=== PATIENT | female | born 1940 | race Caucasian/White ===

== ENCOUNTER 2018-08-07 01:31 | Observation (INO) | payer OTHER ==
[2018-08-07 02:34] LABS: BASO % 1.2 % (0-2.0); EOS % 2.2 % (0-4.5); HEMATOCRIT 40.9 % (32.4-45.2); HEMOGLOBIN 13.9 GM/dL (10.7-15.3); LYMPH % 27.9 % (8-40); MCH 29.2 pg (25.7-33.7); MCHC 33.9 g/dl (32.0-36.0); MEAN CELL VOLUME 86.3 fl (80-96); MEAN PLT VOLUME 8.6 fl (7.5-11.1); MONO % 9.1 % (3.8-10.2); NEUT % 59.6 % (42.8-82.8); PLATELET COUNT 246 K/MM3 (134-434); RBC 4.75 M/mm3 (3.60-5.2); RDW 15.1 % (11.6-15.6); WHITE BLOOD COUNT 7.3 K/mm3 (4.0-10.0)
[2018-08-07 03:06] LABS: ALBUMIN 3.5 g/dl (3.4-5.0); ALK PHOS 71 U/L (45-117); ANION GAP 7 MMOL/L (8-16); BILIRUBIN,TOTAL 0.9 mg/dL (0.2-1); BLOOD UREA NITROGEN 17 mg/dL (7-18); CHLORIDE 102 mmol/L (98-107); CO2 26 mmol/L (21-32); POTASSIUM 4.4 mmol/L (3.5-5.1); SGOT/AST 26 U/L (15-37); SGPT/ALT 23 U/L (13-61); SODIUM 135 mmol/L (136-145); TOT PROT 7.6 g/dl (6.4-8.2)
[2018-08-07 03:13] LABS: GLUCOSE,RANDOM 314 mg/dL (74-106)
[2018-08-07] MEDS ORDERED: SODIUM CHLORIDE 0.9% 500 ML INFUS.BAG IV ONE (03:17)
[2018-08-07] MEDS ORDERED: LORazepam 2 MG/ML SDV VIAL ONE (03:43)
--- NOTE | 2018-08-07 04:59 | PDOC ---
Documentation entered by Mark Huffman SCRIBE, acting as scribe for Ericka Olson MD. Ericka Olson MD: This documentation has been prepared by the Nathanael palomares Nirvannie, SCRIBE, under my direction and personally reviewed by me in its entirety. I confirm that the documentation accurately reflects all work, treatment, procedures, and medical decision making performed by me. History of Present Illness - General Chief Complaint: Lightheaded Stated Complaint: DIZZINESS Time Seen by Provider: 08/07/18 01:54 History Source: Patient, Family Exam Limitations: No Limitations - History of Present Illness Initial Comments: 08/07/18 03:07 HPI: 78YOF with significant past medical history of DM (with neuropathy), HTN, and HLD presenting with 1 day of constant dizziness described as spinning sensation/ lightheadedness, with associated mild blurred vision worsening with ambulation and turning her head to the left side. As per patient, her symptoms onset once she woke up this morning prompting her to go to her PCP who prescribed her Meclizine. She notes taking one dose of Meclizine approximately 8 hours prior to her arrival at 5pm, without relief prompting her arrival. no falls or gait instability, she does admit to peripheral neuropathy and leg pains, causing her to have some walking issues. She denies any recent ear infection or nasal congestion or URI/respiratory sx. She denies any weakness or change in strength or sensation to the extremities/ face. Denies any changes in hearing or changes in speech. Denies fever, chills, chest pain, SOB, palpitation, weakness, N, V, D, abdominal pain, bladder and bowel problems, leg swelling, No sick contacts or travel. No new changes in medications. Allergies: None Past Medical History: DM (with neuropathy), HTN, and HLD Social history: Lives with family. No tobacco, ETOH or drug use. Family history: 2 sisters and 1 brother- secondary to CVA (youngest at age 61YO) Surgical history: Right sided lumpectomy. Meds: as documented in EMR - hctz, tradjenta, gabapentin, glimepride, meclizine. 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 HEENT: no headache. +dizziness. No congestion. +Mild blurred vision. No hearing disturbances. no double vision. CVS: no cp or syncope. Resp: no sob. No cough. Gastrointestinal: no abdominal pain, nausea or vomiting. Genitourinary: no urinary sx, hematuria. MUSCULOSKELETAL: No joint pain and swelling. No neck or back pain. SKIN: no redness or skin changes, no discharge, no rash. No wounds. Hematologic: no easy bruising/bleeding. NEUROLOGIC: No headache, LOC or altered mental status. No weakness, numbness or tingling. +dizziness. Psych: no anxiety or depression Allergic/Immunologic: no allergies All other systems reviewed and negative, or as documented in HPI. Physical exam: General: Well appearing, awake and alert, NAD. HEENT: NCAT, PERRL, EOMI, No nystagmus, clear conjunctiva, anicteric, moist mucus membranes, clear oropharynx, no oral lesions.. Neck: neck supple, FROM Resp: CTAB, normal and even respirations, no respiratory distress CVS: RRR, no murmurs, 2+ peripheral pulses throughout, no peripheral edema Abdomen: soft, NTND, no peritoneal signs. Back: nontender, normal inspection and ROM MSK: no edema, SOW x4, ROM intact. No clubbing or cyanosis. normal bulk and tone. Neuro: Alert, oriented to person time and place. No carotid bruit, CN II-XII grossly intact. Strength prox and distally 5/5 throughout. Sensation grossly intact to light touch. SOW x4. No cerebellar signs, no dysmetria, bilateral finger to nose and heel to duckworth equal and symmetric. Speech clear. +Unable to access gait secondary to dizziness. neg Romberg's sign Skin: warm and well perfused, cap refill <2 sec, normal color 08/07/18 03:08 08/07/18 03:13 Past History - Past Medical History Allergies/Adverse Reactions: Allergies Allergy/AdvReac Type Severity Reaction Status Date / Time No Known Allergies Allergy Verified 08/07/18 02:11 - Suicide/Smoking/Psychosocial Hx Smoking History: Never smoked Have you smoked in the past 12 months: No Information on smoking cessation initiated: No Hx Alcohol Use: No Drug/Substance Use Hx: No *Physical Exam - Vital Signs Last Vital Signs Temp Pulse Resp BP Pulse Ox 97.9 F 73 18 173/69 H 100 08/07/18 01:31 08/07/18 01:31 08/07/18 01:31 08/07/18 01:31 08/07/18 01:31 Heart Score/ECG Review #1 ECG reviewed & interpreted by me at: 02:15 General ECG Interpretation: Sinus Rhythm, Normal Rate, Normal Intervals Compared to previous ECG there are: Previous ECG unavail 08/07/18 03:02 EKG normal sinus rhythm at 75 bpm, no interval abnormalities, narrow QRS, ST and T wave segments and morphology normal. Nonspecific T wave abnormalities ED Treatment Course - LABORATORY CBC & Chemistry Diagram: 08/07/18 02:24 08/07/18 02:24 - ADDITIONAL ORDERS Additional order review: 08/07/18 02:24 RBC 4.75 MCV 86.3 MCHC 33.9 RDW 15.1 MPV 8.6 Neutrophils % 59.6 Lymphocytes % 27.9 Monocytes % 9.1 Eosinophils % 2.2 Basophils % 1.2 - RADIOLOGY Radiology Studies Ordered: Category Date Time Status HEAD CT WITHOUT CONTRAST [CT] Stat CT Scan 08/07/18 03:00 Ordered CHEST X-RAY PORTABLE* [RAD] Stat Radiology 08/07/18 03:01 Ordered Radiograph Interpretation: 08/07/18 05:11 EXAM: HEAD CT WITHOUT CONTRAST HISTORY: Rule out bleed COMPARISON: None. FINDINGS: The ventricular system is midline and nondilated. There is mild cortical atrophy and small vessel ischemic disease. There is no bleed, mass, extra-axial fluid collection or mass effect. No skull fracture or skull lesion is identified. The visualized paranasal sinuses and mastoid air cells are clear. IMPRESSION: No evidence of acute pathology Read by: Nick Rodriguez MD Medical Decision Making - Medical Decision Making 08/07/18 03:01 See HPI for details Vital signs reviewed, wnl. mildly hypertensive, but active vertigo/dizziness ddx central vs peripheral vertigo, CVA, aneurysm, dissection, carotid stenosis. BPPV, labrynthitis. Prior notes reviewed, including admissions, discharges and consultations. laboratory results and imaging reviewed, basic labs and lytes wnl, mild hyperglycemia noted,given fluids, recheck and downtrending. does not appear dka Cardiac panel_neg trop, reassuring, less likely cardiac EKG normal sinus rhythm at 75 bpm, no interval abnormalities, narrow QRS, ST and T wave segments and morphology normal. Nonspecific T wave abnormalities ED course - ativan for severe vertigo/active dizziness sx. meclizine unsuccessful earlier. - does have comorbidities and stroke risk factors, family members who have suffered CVA in 70s. - CT head small vessel disease, otherwise wnl. unremarkable imaging - repeat VS after therapy improved Admit for symptomatic vertigo, eval for stroke as central vertigo, MRI imaging to further delineate due to poor sensitivity of CT. Discussed results and management plan with pt and family member at bedside, agree with impression and plan admit to Dr Rowell 08/07/18 05:15 *DC/Admit/Observation/Transfer Diagnosis at time of Disposition: Vertigo - Discharge Dispostion Condition at time of disposition: Fair Decision to Admit order: Yes Decision to Admit order Date/Time: Decision to Admit Order Category Date Time Status Decision to Admit to Hospital Routine Admission 08/07/18 03:01 Ordered - Referrals - Patient Instructions - Post Discharge Activity
--- NOTE | 2018-08-07 05:27 | PN ---
Teaching Attending Note Name of Resident: Sergio Agudelo ATTENDING PHYSICIAN STATEMENT I saw and evaluated the patient. I reviewed the resident's note and discussed the case with the resident. I agree with the resident's findings and plan as documented. cc: vertigo SUBJECTIVE: She is a very pleasant 78 Y/O F W DM, HTN P/W vertigo for 8 hours prior to ED visit. She had been in her [facility] till the night prior to admission, she had recurrent episodes of vertigo when she moved her head to her left side, lasting for couple of seconds, denied any other neurological, cardiopulmonary complaints. had no fall and per her daughter she could walk with no fall to one side. No other ENT complaints either.Her symptoms where in the morning before she took her DM medication She was evalauted by her PMD in the morning and was RxED Mclizine , She came to the ED couple of hours after taking 1 dose of the medication, in the ED she was had BP IN 170S. was given ativan and at the time of my evaluation she has no more vertigo.Head CT negative for any acute bleeding , pending official read. OBJECTIVE: Last Vital Signs Temp Pulse Resp BP Pulse Ox 97.9 F 77 18 149/69 97 08/07/18 05:04 08/07/18 05:04 08/07/18 01:31 08/07/18 05:04 08/07/18 05:04 in no distress no nisttagmus and asymptomatic when moving her head. strengh 5/5 did not access her gait as she was S/P ativan and stuporous CVS:S1S2 ASSESSMENT AND PLAN: vertigo in a patient with cardiovascular equivalent diseases.most likely BPPV, less likely to be TIA as it was positional. will do further evalaution in the morning when she is more awake. likely to be DCed home no need for further imaging at this time. C/W home medication
--- NOTE | 2018-08-07 05:32 | HP ---
CHIEF COMPLAINT: vertigo PCP: Ana Paula Martins HISTORY OF PRESENT ILLNESS: Patient is a 78 y/o F w/ PMHx DM, HTN, HLD, breast Ca s/p lumpectomy p/w vertigo since awaking, c/o dizziness, lightheadedness, spinning sensation, head turning to left, blurry vision w/ ambulation. Saw PCP and had trial of meclizine w/o relief prompting ED visit. Denies n/v, ROS otherwise negative. In ED was hypertensive to 173/69 on presentation and in distress. Glucose 314, otherwise labs and EKG unremarkable. CT head negative. Received ativan and NS bolus in ED and symptoms resolved entirely, BP normalized, Pt became lethargic. At time of encounter Pt was sleepy but arousable, no remaining vertiginous complaints. ER course was notable for: (1) Labs, EKG, NCHCT unremarkable (2) Symptomatic resolution w/ Ativan (3) Recent Travel: PAST MEDICAL HISTORY: As per HPI PAST SURGICAL HISTORY: As per HPI Social History: Smoking: no Alcohol: no Drugs: no Family History: 3 siblings w/ premature 2/2 CVA Allergies No Known Allergies Allergy (Verified 08/07/18 02:11) HOME MEDICATIONS: Home Medications Medication Instructions Recorded Gabapentin 1 tab PO HS 08/07/18 Glimepiride 1 tab PO DAILY 08/07/18 Hydrochlorothiazide 1 tab PO DAILY 08/07/18 Linagliptin [Tradjenta] 1 tab PO DAILY 08/07/18 REVIEW OF SYSTEMS As per HPI PHYSICAL EXAMINATION Vital Signs - 24 hr 08/07/18 08/07/18 01:31 05:04 Temperature 97.9 F 97.9 F Pulse Rate 73 Pulse Rate [ 77 Right Radial] Respiratory 18 Rate Blood Pressure 173/69 H Blood Pressure 149/69 [Right Arm] O2 Sat by Pulse 100 97 Oximetry (%) GENERAL: Lethargic, oriented x 3 HEENT: NC/AT, PERRLA, EOMI, MMM, anicteric NECK: Normal range of motion, supple without lymphadenopathy, JVD, or masses. LUNGS: CTA b/l HEART: RRR no m/r/g ABDOMEN: +bs, soft, NT, ND EXTREMITIES: 2+ pulses, warm, well-perfused. No calf tenderness. No peripheral edema. 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 Good eye contact. Appropriate mood and affect. SKIN: Warm, dry, normal turgor, no rashes or lesions noted, normal capillary refill. Laboratory Results - last 24 hr 08/07/18 08/07/18 08/07/18 02:24 02:24 05:02 WBC 7.3 RBC 4.75 Hgb 13.9 Hct 40.9 MCV 86.3 MCH 29.2 MCHC 33.9 RDW 15.1 Plt Count 246 MPV 8.6 Absolute Neuts (auto) 4.3 Neutrophils % 59.6 Lymphocytes % 27.9 Monocytes % 9.1 Eosinophils % 2.2 Basophils % 1.2 Nucleated RBC % 0 Sodium 135 L Potassium 4.4 Chloride 102 Carbon Dioxide 26 Anion Gap 7 L BUN 17 Creatinine 1.0 Creat Clearance w eGFR 53.48 POC Glucometer 243 Random Glucose 314 H* Calcium 9.0 Total Bilirubin 0.9 AST 26 ALT 23 Alkaline Phosphatase 71 Troponin I < 0.02 Total Protein 7.6 Albumin 3.5 ASSESSMENT/PLAN: 78 y/o F w/ PMHx DM, HTN, HLD, breast Ca s/p lumpectomy p/w vertigo x 1 day #A: -likely BPPV -HCT negative -full resolution of symptoms w/ Ativan -poor glucose control -BP improved after symptomatic resolution #P: -may consider neurology consult and/or Brain MRI -BGM, SSI -restarted home HCTZ and gabapentin -diabetic diet -no further IVF -monitor BMP, Mg, Phos -obtain A1c -diabetic diet -mechanical DVT PPx -full code -observe on med/surg Visit type - Emergency Visit Emergency Visit: Yes ED Registration Date: 08/07/18 Care time: The patient presented to the Emergency Department on the above date and was hospitalized for further evaluation of their emergent condition. - New Patient This patient is new to me today: Yes Date on this admission: 08/07/18 - Critical Care Critical Care patient: No
[2018-08-07 07:22] LABS: BASO % 1.1 % (0-2.0); HEMATOCRIT 37.5 % (32.4-45.2); HEMOGLOBIN 12.6 GM/dL (10.7-15.3); LYMPH % 39.9 % (8-40); MCH 28.7 pg (25.7-33.7); MCHC 33.7 g/dl (32.0-36.0); MEAN CELL VOLUME 85.3 fl (80-96); MEAN PLT VOLUME 8.4 fl (7.5-11.1); MONO % 9.7 % (3.8-10.2); NEUT % 46.3 % (42.8-82.8); PLATELET COUNT 235 K/MM3 (134-434); RDW 15.1 % (11.6-15.6); WHITE BLOOD COUNT 5.9 K/mm3 (4.0-10.0)
[2018-08-07 07:48] LABS: ANION GAP 6 MMOL/L (8-16); BLOOD UREA NITROGEN 15 mg/dL (7-18); CALCIUM 8.7 mg/dL (8.5-10.1); CHLORIDE 106 mmol/L (98-107); CO2 26 mmol/L (21-32); CREATININE 0.8 mg/dL (0.55-1.3); GLUCOSE,RANDOM 221 mg/dL (74-106); MAGNESIUM 1.9 mg/dL (1.8-2.4); POTASSIUM 3.7 mmol/L (3.5-5.1); SODIUM 137 mmol/L (136-145)
[2018-08-07] MEDS: HYDROCHLOROTHIAZIDE 25 MG TABLET (FP) PO SCH (09:35)
[2018-08-07] MEDS: INSULIN SLIDING SCALE (NOVOLOG) 1 VIAL SQ SCH ×4 (09:35→21:57)
[2018-08-07] MEDS ORDERED: HYDROCHLOROTHIAZIDE 25 MG TABLET (FP) PO SCH (10:00)
[2018-08-07 10:24] VITALS: BMI 25.7
--- NOTE | 2018-08-07 12:26 | EKG ---
Test Reason : Blood Pressure : / mmHG Vent. Rate : 075 BPM Atrial Rate : 075 BPM P-R Int : 170 ms QRS Dur : 090 ms QT Int : 402 ms P-R-T Axes : 054 -28 021 degrees QTc Int : 448 ms NORMAL SINUS RHYTHM NONSPECIFIC ST ABNORMALITY ABNORMAL ECG WHEN COMPARED WITH ECG OF 06-DEC-2001 08:29, QT HAS LENGTHENED Confirmed by STEPHANIE MUNGUIA, FRANCES ([id number]) on 08/07/2018 12:25:53 PM Referred By: Alejandra LEYVA Confirmed By:FRANCES BROWN MD
[2018-08-07] MEDS ORDERED: MECLIZINE HCL 25 MG TABLET (FP) PO PRN (13:50)
--- NOTE | 2018-08-07 15:39 | PN ---
Physical Exam: SUBJECTIVE: Patient seen and examined at bedside this morning. Patient remains to be lethargic, with minimal response to questions. In the afternoon, patient reports dizziness and remains to be sleepy but arousable. OBJECTIVE: Vital Signs Temperature 98.3 F 08/07/18 14:22 Pulse Rate 83 08/07/18 14:22 Respiratory Rate 18 08/07/18 14:22 Blood Pressure 122/52 L 08/07/18 14:22 O2 Sat by Pulse Oximetry (%) 99 08/07/18 13:19 GENERAL: The patient is somnolent but arousable, and fully oriented, in no acute distress. HEAD: Normal with no signs of trauma. EYES: PERRLA, EOMI, sclera anicteric, conjunctiva clear. ENT: oropharynx clear without exudates, moist mucous membranes. NECK: Trachea midline, full range of motion, supple. LUNGS: Breath sounds equal, clear to auscultation bilaterally HEART: Regular rate and rhythm, S1, S2 without murmur, rub or gallop. ABDOMEN: Soft, nontender, nondistended, normoactive bowel sounds EXTREMITIES: 2+ pulses, warm, well-perfused, no edema. NEUROLOGICAL: Cranial nerves II through XII grossly intact. Normal speech, gait not observed. Motor strength 5/5, sensation intact. PSYCH: Normal mood, normal affect. SKIN: Warm, dry, normal turgor, no rashes or lesions noted Laboratory Results - last 24 hr 08/07/18 08/07/18 08/07/18 02:24 02:24 05:02 WBC 7.3 RBC 4.75 Hgb 13.9 Hct 40.9 MCV 86.3 MCH 29.2 MCHC 33.9 RDW 15.1 Plt Count 246 MPV 8.6 Absolute Neuts (auto) 4.3 Neutrophils % 59.6 Lymphocytes % 27.9 Monocytes % 9.1 Eosinophils % 2.2 Basophils % 1.2 Nucleated RBC % 0 Sodium 135 L Potassium 4.4 Chloride 102 Carbon Dioxide 26 Anion Gap 7 L BUN 17 Creatinine 1.0 Creat Clearance w eGFR 53.48 POC Glucometer 243 Random Glucose 314 H* Hemoglobin A1c % Calcium 9.0 Phosphorus Magnesium Total Bilirubin 0.9 AST 26 ALT 23 Alkaline Phosphatase 71 Troponin I < 0.02 Total Protein 7.6 Albumin 3.5 08/07/18 08/07/18 08/07/18 07:05 07:05 07:05 WBC 5.9 RBC 4.40 Hgb 12.6 Hct 37.5 MCV 85.3 MCH 28.7 MCHC 33.7 RDW 15.1 Plt Count 235 MPV 8.4 Absolute Neuts (auto) 2.7 Neutrophils % 46.3 D Lymphocytes % 39.9 D Monocytes % 9.7 Eosinophils % 3.0 Basophils % 1.1 Nucleated RBC % 0 Sodium 137 Potassium 3.7 Chloride 106 Carbon Dioxide 26 Anion Gap 6 L BUN 15 Creatinine 0.8 Creat Clearance w eGFR 69.19 POC Glucometer Random Glucose 221 H Hemoglobin A1c % 11.7 H Calcium 8.7 Phosphorus 3.0 Magnesium 1.9 Total Bilirubin AST ALT Alkaline Phosphatase Troponin I Total Protein Albumin 08/07/18 11:10 WBC RBC Hgb Hct MCV MCH MCHC RDW Plt Count MPV Absolute Neuts (auto) Neutrophils % Lymphocytes % Monocytes % Eosinophils % Basophils % Nucleated RBC % Sodium Potassium Chloride Carbon Dioxide Anion Gap BUN Creatinine Creat Clearance w eGFR POC Glucometer 309 Random Glucose Hemoglobin A1c % Calcium Phosphorus Magnesium Total Bilirubin AST ALT Alkaline Phosphatase Troponin I Total Protein Albumin Active Medications Generic Name Dose Route Start Last Admin Trade Name Freq PRN Reason Stop Dose Admin Enalapril Maleate 2.5 mg 08/07/18 14:00 Vasotec - PO DAILY AIRAM Gabapentin 300 mg 08/07/18 22:00 Neurontin - PO HS AIRAM Glimepiride 4 mg 08/08/18 07:00 Amaryl - PO AM AIRAM Hydrochlorothiazide 25 mg 08/07/18 10:00 08/07/18 09:35 Hctz - PO 25 mg DAILY [facility] Administration Insulin Aspart 1 vial 08/07/18 07:00 08/07/18 11:37 Novolog Vial Sliding Scale - SQ 8 units ACHS AIRAM Administration Protocol Meclizine HCl 25 mg 08/07/18 13:50 Antivert - PO DAILY PRN VERTIGO Multivitamins/Minerals 1 each 08/08/18 10:00 Theragran-M PO DAILY AIRAM Rosuvastatin Calcium 40 mg 08/07/18 22:00 Crestor - PO HS AIRAM Sitagliptin Phosphate 100 mg 08/08/18 07:00 Januvia - PO DAILY@0700 [facility] ASSESSMENT/PLAN: Patient is a 78 year old female with past medical history of DM, HTN, HLD, breast Ca s/p lumpectomy, presented with vertigo for 1 day. #Dizziness likely 2/2 BPPV -Head CT: no evidence of acute intracranial pathology -Continue Meclizine 25mg -patient continue to be somnolent (but improved), likely from the Ativan given -Will continue to monitor #DM -HbA1c 11.7 (previous HbA1c 14, patient known to be noncompliant as per PCP) -BGM ACHS -Will continue home meds Glimepiride 4mg and Sitagliptin 100mg #HTN -Continue home HCTZ 25mg, Enalapril 2.5mg #HLD -Continue Crestor 40mg PO HS #FEN -Not on any standing fluids -Electolytes wnl, routine bmp monitoring -Diabetic diet #Prophylaxis -SCDs -early ambulation #Disposition -full code -med surg -likely for discharge tomorrow Visit type - Emergency Visit Emergency Visit: Yes ED Registration Date: 08/07/18 Care time: The patient presented to the Emergency Department on the above date and was hospitalized for further evaluation of their emergent condition. - New Patient This patient is new to me today: Yes Date on this admission: 08/07/18 - Critical Care Critical Care patient: No
[2018-08-07] MEDS: ENALAPRIL MALEATE 2.5 MG TABLET (FP) PO SCH (15:50)
--- NOTE | 2018-08-07 19:07 | PN ---
Teaching Attending Note Name of Resident: Rito Ren ATTENDING PHYSICIAN STATEMENT I saw and evaluated the patient. I reviewed the resident's note and discussed the case with the resident. I agree with the resident's findings and plan as documented. SUBJECTIVE: seen and examined, feeling better, dizziness improved. no acute events overnight. OBJECTIVE: Vital Signs - 24 hr 08/07/18 08/07/18 08/07/18 01:31 05:04 09:19 Temperature 97.9 F 97.9 F 98.3 F Pulse Rate 73 Pulse Rate [ 77 Right Radial] Respiratory 18 Rate Blood Pressure 173/69 H Blood Pressure 149/69 [Right Arm] O2 Sat by Pulse 100 97 Oximetry (%) 08/07/18 08/07/18 08/07/18 10:20 10:30 13:19 Temperature 98.3 F Pulse Rate 72 Pulse Rate [ Right Radial] Respiratory 18 18 Rate Blood Pressure 147/74 Blood Pressure [Right Arm] O2 Sat by Pulse 99 99 Oximetry (%) 08/07/18 14:22 Temperature 98.3 F Pulse Rate 83 Pulse Rate [ Right Radial] Respiratory 18 Rate Blood Pressure 122/52 L Blood Pressure [Right Arm] O2 Sat by Pulse Oximetry (%) GENERAL: NAD, SITTING IN CHAIR BEDSIDE HEENT: NC/AT, PERRLA, EOMI, MMM NECK: SUPPLE CVS: S1, S2, RRR, NO M/R/G LUNGS: CTA BILATERALLY, NO W/R/R, UNLABORED ABDOMEN: SOFT, NT/ND, NABS EXTREMITIES: 2+ DPP, NO EDEMA NEUROLOGICAL: CN 2-12 GI, NO MOTOR DEFICITS, SENSATION INTACT, N CEREBELLAR DEFICITS, NO NYSTAGMUS Laboratory Results - last 24 hr 08/07/18 08/07/18 08/07/18 02:24 02:24 05:02 WBC 7.3 RBC 4.75 Hgb 13.9 Hct 40.9 MCV 86.3 MCH 29.2 MCHC 33.9 RDW 15.1 Plt Count 246 MPV 8.6 Absolute Neuts (auto) 4.3 Neutrophils % 59.6 Lymphocytes % 27.9 Monocytes % 9.1 Eosinophils % 2.2 Basophils % 1.2 Nucleated RBC % 0 Sodium 135 L Potassium 4.4 Chloride 102 Carbon Dioxide 26 Anion Gap 7 L BUN 17 Creatinine 1.0 Creat Clearance w eGFR 53.48 POC Glucometer 243 Random Glucose 314 H* Hemoglobin A1c % Calcium 9.0 Phosphorus Magnesium Total Bilirubin 0.9 AST 26 ALT 23 Alkaline Phosphatase 71 Troponin I < 0.02 Total Protein 7.6 Albumin 3.5 08/07/18 08/07/18 08/07/18 07:05 07:05 07:05 WBC 5.9 RBC 4.40 Hgb 12.6 Hct 37.5 MCV 85.3 MCH 28.7 MCHC 33.7 RDW 15.1 Plt Count 235 MPV 8.4 Absolute Neuts (auto) 2.7 Neutrophils % 46.3 D Lymphocytes % 39.9 D Monocytes % 9.7 Eosinophils % 3.0 Basophils % 1.1 Nucleated RBC % 0 Sodium 137 Potassium 3.7 Chloride 106 Carbon Dioxide 26 Anion Gap 6 L BUN 15 Creatinine 0.8 Creat Clearance w eGFR 69.19 POC Glucometer Random Glucose 221 H Hemoglobin A1c % 11.7 H Calcium 8.7 Phosphorus 3.0 Magnesium 1.9 Total Bilirubin AST ALT Alkaline Phosphatase Troponin I Total Protein Albumin 08/07/18 08/07/18 11:10 16:42 WBC RBC Hgb Hct MCV MCH MCHC RDW Plt Count MPV Absolute Neuts (auto) Neutrophils % Lymphocytes % Monocytes % Eosinophils % Basophils % Nucleated RBC % Sodium Potassium Chloride Carbon Dioxide Anion Gap BUN Creatinine Creat Clearance w eGFR POC Glucometer 309 327 Random Glucose Hemoglobin A1c % Calcium Phosphorus Magnesium Total Bilirubin AST ALT Alkaline Phosphatase Troponin I Total Protein Albumin Current Medications Generic Name Dose Route Start Last Admin Trade Name Freq PRN Reason Stop Dose Admin Enalapril Maleate 2.5 mg 08/07/18 14:00 08/07/18 15:50 Vasotec - PO 2.5 mg DAILY AIRAM Administration Gabapentin 300 mg 08/07/18 22:00 Neurontin - PO HS AIRAM Glimepiride 4 mg 08/08/18 07:00 Amaryl - PO AM AIRAM Hydrochlorothiazide 25 mg 08/07/18 10:00 08/07/18 09:35 Hctz - PO 25 mg DAILY AIRAM Administration Insulin Aspart 1 vial 08/07/18 07:00 08/07/18 16:43 Novolog Vial Sliding Scale - SQ 8 units ACHS AIRAM Administration Protocol Meclizine HCl 25 mg 08/07/18 13:50 08/07/18 15:50 Antivert - PO 25 mg DAILY PRN Administration VERTIGO Multivitamins/Minerals 1 each 08/08/18 10:00 Theragran-M PO DAILY AIRAM Rosuvastatin Calcium 40 mg 08/07/18 22:00 Crestor - PO HS AIRAM Sitagliptin Phosphate 100 mg 08/08/18 07:00 Januvia - PO DAILY@0700 [facility] REPORTS REVIEWED ASSESSMENT AND PLAN: 78 year old female with PMHx HTN, HLD, DM2, Breast CA s/p lumpectomy presents with vertigo 1) Vertigo likely peripheral in origin -positional in nature -c/w meclizine -today lethargic likely from benzo -dc in am if improved 2) DM2-uncontrolled, HbA1c 11.7 (previous HbA1c 14, patient known to be noncompliant as per PCP) -discussed case with PCP Dr. Hartmann, states her A1C was 14, was checked yesterday in the office, she is noncompliant with medications and diet -will not start insulin at this time, patient will need to followup closely outpatient -resume home meds -monitor BS and iss for coverage 3) HTN -Controlled on current regimen 4) HLD -statin
[2018-08-07] MEDS ORDERED: ROSUVASTATIN CA 20 MG TABLET (FP) PO SCH (22:00)
[2018-08-07] MEDS ORDERED: GABAPENTIN 300 MG CAPSULE (FP) PO SCH ×2 (22:00)
[2018-08-08] MEDS: INSULIN SLIDING SCALE (NOVOLOG) 1 VIAL SQ SCH ×2 (06:49→11:22)
[2018-08-08] MEDS ORDERED: sitaGLIPtin PHOSPHATE 100 MG TABLET (FP) PO SCH (07:00)
[2018-08-08] MEDS ORDERED: GLIMEPIRIDE 4 MG TABLET (FP) PO SCH (07:00)
[2018-08-08 08:11] LABS: ANION GAP 7 MMOL/L (8-16); BLOOD UREA NITROGEN 19 mg/dL (7-18); CALCIUM 9.4 mg/dL (8.5-10.1); CHLORIDE 107 mmol/L (98-107); CO2 26 mmol/L (21-32); CREATININE 0.8 mg/dL (0.55-1.3); GLUCOSE,RANDOM 202 mg/dL (74-106); PHOSPHOROUS 4.4 mg/dL (2.5-4.9); SODIUM 139 mmol/L (136-145)
[2018-08-08] MEDS ORDERED: PT OWN MED DRAWER 7, Y5N ONE (09:11)
[2018-08-08] MEDS: ENALAPRIL MALEATE 2.5 MG TABLET (FP) PO SCH (09:28)
[2018-08-08] MEDS: HYDROCHLOROTHIAZIDE 25 MG TABLET (FP) PO SCH (09:28)
[2018-08-08] MEDS ORDERED: LINAGLIPTIN PO SCH (10:00)
[2018-08-08] MEDS ORDERED: MULTIVITAMINS THER W-MINERALS COMBO TABLET (FP) PO SCH (10:00)
--- NOTE | 2018-08-08 11:15 | DS ---
Physical Exam: SUBJECTIVE: Patient seen and examined at bedside this morning. No acute events overnight. Patient is more awake and alert today. She has no complaints. Denies fever, chills,headache, dizziness,chest pain, SOB, abdominal pain, diarrhea, urinary symptoms. OBJECTIVE: Vital Signs Temperature 98.4 F 08/08/18 10:00 Pulse Rate 70 08/08/18 10:00 Respiratory Rate 18 08/08/18 10:00 Blood Pressure 107/55 L 08/08/18 10:00 O2 Sat by Pulse Oximetry (%) 100 08/08/18 05:00 PHYSICAL EXAM GENERAL: The patient is somnolent but arousable, and fully oriented, in no acute distress. HEAD: Normal with no signs of trauma. EYES: PERRLA, EOMI, sclera anicteric, conjunctiva clear. ENT: oropharynx clear without exudates, moist mucous membranes. NECK: Trachea midline, full range of motion, supple. LUNGS: Breath sounds equal, clear to auscultation bilaterally HEART: Regular rate and rhythm, S1, S2 without murmur, rub or gallop. ABDOMEN: Soft, nontender, nondistended, normoactive bowel sounds EXTREMITIES: 2+ pulses, warm, well-perfused, no edema. NEUROLOGICAL: Cranial nerves II through XII grossly intact. Normal speech, normal gait. Motor strength 5/5, sensation intact. PSYCH: Normal mood, normal affect. SKIN: Warm, dry, normal turgor, no rashes or lesions noted LABS Laboratory Results - last 24 hr 08/07/18 08/07/18 08/08/18 16:42 21:56 06:30 Sodium 139 Potassium 4.0 Chloride 107 Carbon Dioxide 26 Anion Gap 7 L BUN 19 H Creatinine 0.8 Creat Clearance w eGFR 69.19 POC Glucometer 327 336 Random Glucose 202 H Calcium 9.4 Phosphorus 4.4 Magnesium 2.0 08/08/18 06:47 Sodium Potassium Chloride Carbon Dioxide Anion Gap BUN Creatinine Creat Clearance w eGFR POC Glucometer 189 Random Glucose Calcium Phosphorus Magnesium HOSPITAL COURSE: Date of Admission:08/07/18 Date of Discharge: 08/08/18 Patient is a 78 year old female with past medical history of DM, HTN, HLD, breast Ca s/p lumpectomy, presented with vertigo for [address] was done which revealed no evidence of acute intracranial pathology. Patient was given Meclizine which improved her dizziness. Patient was also noted to have HbA1c of 11.7. As per PCP, last A1c was 14. Patient was advised to take her medications regularly and to follow-up with her PCP. Minutes to complete discharge: 36 Discharge Summary Reason For Visit: VERTIGO Current Active Problems Vertigo (Acute) Diabetes mellitus (Chronic) Hypertension (Chronic) Condition: Improved - Instructions Diet, Activity, Other Instructions: Your visit You were admitted to the hospital because you were feeling dizzy and lightheaded. You were given IV fluids and medication for vertigo which improved your symptoms. You were also noted to have elevated blood pressure and blood sugar when you came in. It is important that you follow up with your primary doctor to discuss further management of your high blood pressure and diabetes. Care Eat a low fat and low carbohydrate diet and drink plenty of water. Exercise regularly. Take your blood sugar level daily before dinner time, keep a record of it, and bring this blood sugary diary to your primary doctor. Medications Continue your home medications. Follow-up Please follow up with your primary care physician (Dr Martins) within 1 week. Additional info Call 911 or go to the ED if with any worsening fever, chills, headache, dizziness, chest pain, shortness of breath, belly pain, bloody stools or any new concerns noted. Referrals: Ana Paula Martins MD [Nurse Practitioner] - Disposition: HOME - Home Medications Comprehensive Discharge Medication List: Ambulatory Orders Enalapril Maleate 2.5 mg PO DAILY 08/07/18 Gabapentin 1 tab PO HS 08/07/18 Glimepiride 1 tab PO DAILY 08/07/18 Hydrochlorothiazide 1 tab PO DAILY 08/07/18 Linagliptin [Tradjenta] 1 tab PO DAILY 08/07/18 Meclizine HCl 25 mg PO DAILY PRN 08/07/18 Multivit-Min/Iron Fum/Folic AC [Xnnny-Mumlyiu-Ckdmqavb Tablet] 1 cap PO DAILY Omeprazole 20 mg PO DAILY 08/07/18 Rosuvastatin Calcium [Crestor] 40 mg PO DAILY 08/07/18 This patient is new to me today: No Emergency Visit: Yes ED Registration Date: 08/07/18 Care time: The patient presented to the Emergency Department on the above date and was hospitalized for further evaluation of their emergent condition. Critical Care patient: No - Discharge Referral Referred to [facility] Med P.C.: No
--- NOTE | 2018-08-08 11:59 | PN ---
Teaching Attending Note Name of Resident: Kat Rahman ATTENDING PHYSICIAN STATEMENT I saw and evaluated the patient. I reviewed the resident's note and discussed the case with the resident. I agree with the resident's findings and plan as documented. SUBJECTIVE: Patient has no complaints. OBJECTIVE: Vital Signs Period Temp Pulse Resp BP Sys/Aparicio Pulse Ox Last 24 Hr 97.9 F-98.6 F 54-88 18-20 105-146/52-74 99-100 HEART: S1S2, RRR LUNGS: Clear ABDOMEN: Soft, non-tender, non-distended, normal BS EXTREMITIES: No edema NEUROLOGICAL: Non-focal, normal gait Laboratory Results - last 24 hr 08/07/18 08/07/18 08/08/18 16:42 21:56 06:30 Sodium 139 Potassium 4.0 Chloride 107 Carbon Dioxide 26 Anion Gap 7 L BUN 19 H Creatinine 0.8 Creat Clearance w eGFR 69.19 POC Glucometer 327 336 Random Glucose 202 H Calcium 9.4 Phosphorus 4.4 Magnesium 2.0 08/08/18 08/08/18 06:47 11:18 Sodium Potassium Chloride Carbon Dioxide Anion Gap BUN Creatinine Creat Clearance w eGFR POC Glucometer 189 382 Random Glucose Calcium Phosphorus Magnesium Current Medications Generic Name Dose Route Start Last Admin Trade Name Freq PRN Reason Stop Dose Admin Enalapril Maleate 2.5 mg 08/07/18 14:00 08/08/18 09:28 Vasotec - PO 2.5 mg DAILY AIRAM Administration Gabapentin 300 mg 08/07/18 22:00 08/07/18 21:57 Neurontin - PO 300 mg HS AIRAM Administration Glimepiride 4 mg 08/08/18 07:00 08/08/18 06:49 Amaryl - PO 4 mg AM AIRAM Administration Hydrochlorothiazide 25 mg 08/07/18 10:00 08/08/18 09:28 Hctz - PO 25 mg DAILY AIRAM Administration Insulin Aspart 1 vial 08/07/18 07:00 08/08/18 11:22 Novolog Vial Sliding Scale - SQ 10 units ACHS AIRAM Administration Protocol Meclizine HCl 25 mg 08/07/18 13:50 08/07/18 15:50 Antivert - PO 25 mg DAILY PRN Administration VERTIGO Multivitamins/Minerals 1 each 08/08/18 10:00 08/08/18 09:28 Theragran-M PO 1 each DAILY AIRAM Administration Rosuvastatin Calcium 40 mg 08/07/18 22:00 08/07/18 21:57 Crestor - PO 40 mg HS AIRAM Administration Sitagliptin Phosphate 100 mg 08/08/18 07:00 08/08/18 06:49 Januvia - PO 100 mg DAILY@0700 AIRAM Administration ASSESSMENT AND PLAN: This is a 78 year old woman with a history of HTN, hyperlipidemia, type 2 DM, breast cancer who presented to the ED with dizziness. 1. Dizziness likely secondary to benign positional vertigo - Continue meclizine as needed 2. HTN - Continue Vasotec, HCTZ 3. Type 2 DM, uncontrolled, with peripheral neuropathy - HbA1c 11.7 - Patient has been non-compliant with treatment - Continue Januvia, Amaryl, Novolog sliding scale, Neurontin 4. Hyperlipidemia - Continue Crestor 5. Breast cancer, history of lumpectomy 6. Disposition - Ok for discharge home today
[2018-08-08 13:41] VITALS: BP 108/45; PULSE 77; TEMP 98.2
== END 2018-08-08 14:33 | disposition home or self-care (01) ==
LOC: JER 01:31 → JERBED 03:01 → J7W 07:29
PROVIDERS: ADMIT Internal Medicine; ATTEND Internal Medicine
PROC: 3E0337Z Introduction of Electrolytic and Water Balance Substance into Peripheral Vein, Percutaneous Approach (ICD-10-PCS; principal; 2018-08-07)
PROC: 3E033GC Introduction of Other Therapeutic Substance into Peripheral Vein, Percutaneous Approach (ICD-10-PCS; 2018-08-07)
PROC: 3E013VG Introduction of Insulin into Subcutaneous Tissue, Percutaneous Approach (ICD-10-PCS; 2018-08-07)
DX: R42 Dizziness and giddiness (principal); I10 Essential (primary) hypertension; E78.5 Hyperlipidemia, unspecified; E11.40 Type 2 diabetes mellitus with diabetic neuropathy, unspecified; Z79.84 Long term (current) use of oral hypoglycemic drugs
CPT/HCPCS: 36415; 70450-TC; 71045-TC-FY; 80048; 80053; 82962; 83036; 83735; 84100; 84484; 85025; 93005; 93010; 96372; 96374; 97116-GP; 97161-GP; 99285-25; G0378

== ENCOUNTER 2019-10-28 12:24 | Emergency (ER) | payer OTHER ==
--- NOTE | 2019-10-28 12:39 | PDOC ---
Rapid Medical Evaluation Time Seen by Provider: 10/28/19 12:35 Medical Evaluation: Allergies Allergy/AdvReac Type Severity Reaction Status Date / Time No Known Allergies Allergy Verified 08/07/18 02:11 10/28/19 12:38 cc: tripped on last stair and hit the back of her head, no loc, on no anticoag meds, no dizziness or visual complaints currently Exam: noted hematoma to left occipital, no cervical tenderness Plan: head and neck ct Discharge Disposition - Diagnosis Closed head injury - Referrals - Patient Instructions - Post Discharge Activity
[2019-10-28 12:42] VITALS: TEMP 98.2; BMI 29.2
--- NOTE | 2019-10-28 14:14 | PDOC ---
History of Present Illness - General Chief Complaint: Injury Stated Complaint: FALL Time Seen by Provider: 10/28/19 12:35 History Source: Patient Exam Limitations: No Limitations - History of Present Illness Initial Comments: Pt is an 79 yo F, with PMH of HTN, who is presenting from home after a mechanical fall. Pt states she was walking down the steps when her foot slipped on the last step and she fell backwards, hitting the back of her head on the stairs. Pt is accompanied by her daughter, who witnessed the event, and agrees that there was no LOC, no shaking activity, and that pt was able to get herself back up to standing with minimal assistance. Pt has been ambulatory since the fall. Pt complains now only of mild pain on the back of her head. Pt denies any recent fevers/chills, headache, vision changes, syncope, chest pain, palpitations, SOB, nausea/vomiting, abdominal pain, urinary symptoms, diarrhea/constipation, incontinence, weakness or numbness in her extremities, or leg swelling. Allergies: NKDA Social: Pt denies any cigarette, alcohol, or drug use. Pt denies any recent travel or sick contacts. Surgical: no relevant history. Family: no relevant history. 12/07/19 12:09 Past History - Travel History Traveled outside of the country in the last 30 days: No Close contact w/someone who was outside of country & ill: No - Medical History Allergies/Adverse Reactions: Allergies Allergy/AdvReac Type Severity Reaction Status Date / Time No Known Allergies Allergy Verified 10/28/19 13:01 Home Medications: Ambulatory Orders Enalapril Maleate 2.5 mg PO DAILY 08/07/18 Gabapentin 1 tab PO HS 08/07/18 Glimepiride 1 tab PO DAILY 08/07/18 Hydrochlorothiazide 1 tab PO DAILY 08/07/18 Linagliptin [Tradjenta] 1 tab PO DAILY 08/07/18 Meclizine HCl 25 mg PO DAILY PRN 08/07/18 Multivit-Min/Iron Fum/Folic AC [Rjlrb-Oqoqfqr-Fmvwoqmh Tablet] 1 cap PO DAILY 08/07/18 Omeprazole 20 mg PO DAILY 08/07/18 Rosuvastatin Calcium [Crestor] 40 mg PO DAILY 08/07/18 COPD: No Diabetes: Yes HTN: Yes Hypercholesterolemia: Yes - Immunization History Immunization Up to Date: (Unknown) - Psycho-Social/Smoking History Smoking History: Unknown if ever smoked Have you smoked in the past 12 months: No Number of Cigarettes Smoked Daily: 0 Cigars Per Day: 0 - Substance Abuse Hx (Audit-C & DAST Scrn) How often the patient has a drink containing alcohol: Never Score: In Men: 4 or > Positive; In Women: 3 or > Positive: 0 Screen Result (Pos requires Nsg. Audit-10AR): Negative Trauma Specific PMHX - Complaint Specific PMHX Arthritis: No Back Injury: No Neck Injury: No Hx Sacro Iliac Joint Dysfunction: No Review of Systems - Review of Systems Able to Perform ROS?: Yes Is the patient limited Cymraes proficient: No Constitutional: Yes: Weight Stable. No: Chills, Fever, Loss of Appetite, Malaise, Weakness HEENTM: No: Eye Pain, Blurred Vision, Recent change in vision, Double Vision, Ear Discharge, Nose Bleeding, Hearing Loss, Mouth Pain Respiratory: No: Cough, Orthopnea, Shortness of Breath Cardiac (ROS): No: Chest Pain, Edema, Irregular Heart Rate, Lightheadedness, Palpitations, Syncope, Chest Tightness ABD/GI: No: Constipated, Diarrhea, Nausea, Poor Appetite, Poor Fluid Intake, Vomiting : No: Burning, Dysuria, Frequency, Pain Musculoskeletal: No: Back Pain, Muscle Weakness, Neck Pain Integumentary: No: Bruising Neurological: No: Headache, Numbness, Paresthesia, Seizure, Weakness, Unsteady Gait, Dizziness Psychiatric: No: Sleep Pattern Change, Change in Appetite Endocrine: No: Increased Urine, Change in Weight Hematologic/Lymphatic: No: Anemia, Blood Clots, Easy Bleeding, Easy Bruising All Other Systems: Reviewed and Negative *Physical Exam - Vital Signs Last Vital Signs Temp Pulse Resp BP Pulse Ox 98.2 F 84 16 176/76 H 99 10/28/19 12:39 10/28/19 12:39 10/28/19 12:39 10/28/19 12:39 10/28/19 12:39 - Physical Exam Vitals stable (BP improved after initial triage and pain control), pt afebrile. Pt in NAD, normal body habitus. Pt alert and oriented x3. 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 No midline spinal tenderness, step-offs, or crepitus. Head normocephalic. +~1 cm L occipital abrasion without laceration, no skull depression palpated, no active bleeding. Eyes PERRLA, EOMI. Oropharynx without erythema or exudates, no LAD b/l. No oral trauma on tongue, buccal membranes, no loose teeth. No nasal congestion. Hearing intact. No hemotympanum. Clear heart sounds, S1/S2, no JVD, b/l pedal edema, or heart murmur. Clear lung sounds, no respiratory distress, wheezes, crackles, or accessory muscle use. No abdominal or CVA tenderness to palpation, no rebound, no guarding. Abdomen soft, non-distended, and with normoactive bowel sounds. Skin without jaundice or rash. 12/07/19 12:16 Medical Decision Making - Medical Decision Making Pt was seen at bedside, also will be seen by attending Dr. Clemons. Pt presenting after a mechanical fall. Small occipital abrasion without laceration. Pt not on A/C, no precipitating symptoms to the fall. CT head and C-spine to evaluate for fractures or intracranial bleed Provided 650 mg PO tylenol for improvement of pain. Will continue to reassess pt and monitor for symptomatic improvement. 12/07/19 12:18 Pts pain and BP improved after interventions. CTH and C-spine negative for acute pathology. Pt has been ambulatory in ED and tolerated PO intake. Pt is with daughter at bedside who will drive her home and can observe for symptoms of concussion vs AMS Pt safe for d/c to home with PCP f/u. Strict return precautions provided with pt and daughter's understanding. 12/07/19 12:20 Discharge - Discharge Information Problems reviewed: Yes Clinical Impression/Diagnosis: Closed head injury Qualifiers: Encounter type: initial encounter Qualified Code(s): S09.90XA - Unspecified injury of head, initial encounter Fall Qualifiers: Encounter type: initial encounter Qualified Code(s): W19.XXXA - Unspecified fa ll, initial encounter Condition: Improved Disposition: HOME - Admission No - Follow up/Referral Referrals: ON STAFF,NOT [Primary Care Provider] - - Patient Discharge Instructions Patient Printed Discharge Instructions: DI for Closed Head Injury Additional Instructions: You were seen in the ER today for a head injury after a fall. The results of your imaging today was normal. Please follow-up with your primary care doctor within 1-2 days to discuss your visit and make sure your symptoms have improved. Please return to the ER if you have any worsening pain, development of fevers or chills, loss of consciousness, inability to tolerate food or fluids, or any other concerns. You can take tylenol every 4-6 hours as needed for pain. Print Language: [place] - Post Discharge Activity
[2019-10-28] MEDS ORDERED: ACETAMINOPHEN 325 MG TABLET (FP) PO ONE (14:38)
[2019-10-28] MEDS ORDERED: ACETAMINOPHEN 325 MG TABLET (FP) ONE (14:39)
[2019-10-28 14:49] VITALS: BP 161/68; PULSE 71
--- NOTE | 2019-10-28 15:17 | PDOC ---
Attending Attestation - Resident Resident Name: Sasha Barton - ED Attending Attestation I have performed the following: I have examined & evaluated the patient, The case was reviewed & discussed with the resident, I agree w/resident's findings & plan - HPI HPI: 10/28/19 15:13 high functioning 79y/o F p/w head injury after accidental fall. Pt slipped on last step of a staircase, fell back an struck L head. no LOC, no light- headedness or syncope. no other injuries or pain, has been ambulatory without difficulty since the incident. no generalized headache/vision change/speech change/n/v/focal deficit. not on blood thinners. - Physicial Exam PE: 10/28/19 15:14 vss, bp improved from triage trauma exam localized to L parietal scalp hematoma without laceration or skull deformity perrl, eomi, neck supple. no midline spine ttp s1s2 rrr, ctab, abd benign no bony ttp/deformity neuro nl - Medical Decision Making 10/28/19 15:15 79y/o F with accidental trip and fall and head injury, minor without red flags on history or exam. localized head injury with normal trauma exam. ct head and cspine without acute injury feels well, ambulatory agrees with d/c. daughter at bedside. concussion precautions discussed. Discharge - Discharge Information Problems reviewed: Yes Clinical Impression/Diagnosis: Closed head injury Qualifiers: Encounter type: initial encounter Qualified Code(s): S09.90XA - Unspecified injury of head, initial encounter Fall Qualifiers: Encounter type: initial encounter Qualified Code(s): W19.XXXA - Unspecified fall, initial encounter Condition: Improved Disposition: HOME - Follow up/Referral Referrals: ON STAFF,NOT [Primary Care Provider] - - Patient Discharge Instructions Patient Printed Discharge Instructions: DI for Closed Head Injury Additional Instructions: You were seen in the ER today for a head injury after a fall. The results of your imaging today was normal. Please follow-up with your primary care doctor within 1-2 days to discuss your visit and make sure your symptoms have improved. Please return to the ER if you have any worsening pain, development of fevers or chills, loss of consciousness, inability to tolerate food or fluids, or any othe r concerns. You can take tylenol every 4-6 hours as needed for pain. Print Language: UKRAINIAN - Post Discharge Activity
== END 2019-10-28 15:32 | disposition home or self-care (01) ==
LOC: JER 12:24
DX: S09.90XA Unspecified injury of head, initial encounter (principal); W19.XXXA Unspecified fall, initial encounter
CPT/HCPCS: 70450-TC; 72125-TC; 99284-25

== ENCOUNTER 2020-04-21 04:30 | Day surgery (SDC) | payer OTHER ==
[2020-04-20 13:57] VITALS: BMI 27.1
[~2020-04-21 04:30] MED LIST: ACETAMINOPHEN 325 MG TABLET (FP) PO PRN; BSS (NA/CA/MG/K) BALANCED SALT SOLUTION OPHTH SOLN 15 ML BOTTLE OS ONE; CHONDROITIN SU A/HYALUR SOD 1 KIT IO ONE; CYCLOPENTOLATE HCL 1% OPHTH SOLN 2 ML BOTTLE OP SCH; KETOROLAC TROMETHAMINE 0.5% EYE DROP 1 DROP DROPS OP SCH; LIDOCAINE HCL 1% PRESERVATIVE FREE - 30ML VIAL IO ONE; OFLOXACIN 0.3% OPHTHALMIC SOLUTION 5 ML BOTTLE OP SCH; PHENYLEPHRINE 2.5% OPHTH SOLN 15 ML BOTTLE OP SCH; PHENYLEPHRINE/KETOROLAC 4 ML VIAL IO ONE; POVIDONE-IODINE 5% OPHTHALMIC PREP 30 ML SOLUTION OS ONE; TETRACAINE 0.5% OPHTH SOLN 2 ML BOTTLE OS ONE; TROPICAMIDE 1% OPHTH SOLN 15 ML BOTTLE OP SCH
[2020-04-21] MEDS ORDERED: CHONDROITIN SU A/HYALUR SOD 1 KIT ONE (07:07)
[2020-04-21] MEDS ORDERED: BSS (NA/CA/MG/K) BALANCED SALT SOLUTION OPHTH SOLN 15 ML BOTTLE ONE (07:09)
[2020-04-21] MEDS ORDERED: KETOROLAC TROMETHAMINE 0.5% EYE DROP 1 DROP DROPS ONE (07:48)
[2020-04-21] MEDS ORDERED: CYCLOPENTOLATE HCL 1% OPHTH SOLN 2 ML BOTTLE ONE (07:48)
[2020-04-21] MEDS ORDERED: OFLOXACIN 0.3% OPHTHALMIC SOLUTION 5 ML BOTTLE ONE (07:48)
[2020-04-21] MEDS ORDERED: TROPICAMIDE 1% OPHTH SOLN 15 ML BOTTLE ONE (07:48)
[2020-04-21] MEDS ORDERED: PHENYLEPHRINE 2.5% OPHTH SOLN 15 ML BOTTLE OS ONE ×3 (08:00→08:20)
[2020-04-21] MEDS ORDERED: KETOROLAC TROMETHAMINE 0.5% EYE DROP 1 DROP DROPS OS ONE ×3 (08:00→08:20)
[2020-04-21] MEDS ORDERED: CYCLOPENTOLATE HCL 1% OPHTH SOLN 2 ML BOTTLE OS ONE ×3 (08:00→08:20)
[2020-04-21] MEDS ORDERED: TROPICAMIDE 1% OPHTH SOLN 15 ML BOTTLE OS ONE ×3 (08:00→08:20)
[2020-04-21] MEDS ORDERED: OFLOXACIN 0.3% OPHTHALMIC SOLUTION 5 ML BOTTLE OS ONE ×3 (08:00→08:20)
[2020-04-21 08:14] VITALS: TEMP 98
[2020-04-21] MEDS ORDERED: BUPIVACAINE HCL/PF 0.75% 10 ML VIAL ONE (09:04)
[2020-04-21] MEDS ORDERED: LIDOCAINE HCL/PF 2% SDV 5ML VIAL ONE (09:04)
[2020-04-21] MEDS ORDERED: MIDAZOLAM HCL 2 MG/2 ML SINGLE DOSE VIAL ONE (09:22)
[2020-04-21] MEDS ORDERED: TETRACAINE 0.5% OPHTH SOLN 2 ML BOTTLE OS ONE (09:24)
[2020-04-21] MEDS ORDERED: POVIDONE-IODINE 5% OPHTHALMIC PREP 30 ML SOLUTION OS ONE (09:25)
[2020-04-21] MEDS ORDERED: LIDOCAINE HCL 1% PRESERVATIVE FREE - 30ML VIAL IO ONE (09:32)
[2020-04-21] MEDS ORDERED: CHONDROITIN SU A/HYALUR SOD 1 KIT IO ONE (09:32)
[2020-04-21] MEDS ORDERED: BSS (NA/CA/MG/K) BALANCED SALT SOLUTION OPHTH SOLN 15 ML BOTTLE OS ONE (09:32)
[2020-04-21] MEDS ORDERED: PHENYLEPHRINE/KETOROLAC 4 ML VIAL IO ONE (09:50)
[2020-04-21 11:03] VITALS: BP 149/64
[2020-04-21 11:22] VITALS: PULSE 60
== END 2020-04-21 11:10 | disposition home or self-care (01) ==
LOC: JASU-SURG 04:30
PROVIDERS: ATTEND Ophthalmology
PROC: 08RK3JZ Replacement of Left Lens with Synthetic Substitute, Percutaneous Approach (ICD-10-PCS; principal; 2020-04-21 09:00)
DX: H26.9 Unspecified cataract (principal); H57.03 Miosis
CPT/HCPCS: 66982; V2631; 82962; J1097

== ENCOUNTER 2020-05-19 04:28 | Day surgery (SDC) | payer OTHER ==
[2020-05-18 15:01] VITALS: BMI 28.8
[2020-05-19] MEDS ORDERED: CHONDROITIN SU A/HYALUR SOD 1 KIT ONE ×2 (07:13→07:14)
[2020-05-19] MEDS ORDERED: LIDOCAINE HCL/PF 1% SDV 5ML VIAL ONE (07:26)
[2020-05-19] MEDS ORDERED: TROPICAMIDE 1% OPHTH SOLN 15 ML BOTTLE ONE (07:35)
[2020-05-19] MEDS ORDERED: KETOROLAC TROMETHAMINE 0.5% EYE DROP 1 DROP DROPS ONE (07:36)
[2020-05-19] MEDS ORDERED: OFLOXACIN 0.3% OPHTHALMIC SOLUTION 5 ML BOTTLE ONE (07:36)
[2020-05-19] MEDS ORDERED: CYCLOPENTOLATE HCL 1% OPHTH SOLN 2 ML BOTTLE ONE (07:36)
[2020-05-19] MEDS ORDERED: OFLOXACIN 0.3% OPHTHALMIC SOLUTION 5 ML BOTTLE OD ONE ×3 (07:50→08:20)
[2020-05-19] MEDS ORDERED: TROPICAMIDE 1% OPHTH SOLN 15 ML BOTTLE OD ONE ×2 (07:50→08:05)
[2020-05-19] MEDS ORDERED: CYCLOPENTOLATE HCL 1% OPHTH SOLN 2 ML BOTTLE OD ONE ×3 (07:50→08:20)
[2020-05-19] MEDS ORDERED: PHENYLEPHRINE 2.5% OPHTH SOLN 15 ML BOTTLE OD ONE ×3 (07:50→08:20)
[2020-05-19] MEDS ORDERED: KETOROLAC TROMETHAMINE 0.5% EYE DROP 1 DROP DROPS OD ONE ×3 (07:50→08:20)
[2020-05-19] MEDS ORDERED: TROPICAMIDE 0.5% OPHTHALMIC SOLN 15 ML BOTTLE OD ONE (08:20)
[2020-05-19] MEDS ORDERED: MIDAZOLAM HCL 2 MG/2 ML SINGLE DOSE VIAL ONE (09:49)
[2020-05-19] MEDS ORDERED: POVIDONE-IODINE 5% OPHTHALMIC PREP 30 ML SOLUTION OD ONE (09:50)
[2020-05-19] MEDS ORDERED: TETRACAINE 0.5% OPHTH SOLN 2 ML BOTTLE OD ONE (09:50)
[2020-05-19] MEDS ORDERED: BSS (NA/CA/MG/K) BALANCED SALT SOLUTION OPHTH SOLN 15 ML BOTTLE IO ONE (09:58)
[2020-05-19] MEDS ORDERED: TRYPAN BLUE 0.5 ML DISP.SYRIN IO ONE (10:00)
[2020-05-19] MEDS ORDERED: CHONDROITIN SU A/HYALUR SOD 1 KIT IO ONE (10:02)
[2020-05-19] MEDS ORDERED: LIDOCAINE HCL 1% PRESERVATIVE FREE - 30ML VIAL INF ONE (10:02)
[2020-05-19] MEDS ORDERED: EPINEPHrine/PF 1 MG/1 ML (1:1,000) AMPULE IO ONE (10:03)
[2020-05-19 10:53] VITALS: TEMP 97.5
[2020-05-19 11:41] VITALS: BP 162/68; PULSE 60
== END 2020-05-19 11:42 | disposition home or self-care (01) ==
LOC: JASU-SURG 04:28
PROVIDERS: ATTEND Ophthalmology
PROC: 08RJ3JZ Replacement of Right Lens with Synthetic Substitute, Percutaneous Approach (ICD-10-PCS; principal; 2020-05-19 09:00)
DX: H26.9 Unspecified cataract (principal); H57.03 Miosis; H21.541 Posterior synechiae (iris), right eye
CPT/HCPCS: 66982; V2631; 82962

== ENCOUNTER 2020-12-12 02:25 | Inpatient (IN) | payer OTHER ==
[2020-12-12] MEDS ORDERED: LACTATED RINGERS SOLUTION 1000 ML INFUS.BAG IV ONE (05:35)
[2020-12-12 05:45] LABS: BASO % 0.6 % (0-2.0); HEMATOCRIT 40.1 % (32.4-45.2); HEMOGLOBIN 13.8 GM/dL (10.7-15.3); LYMPH % 29.7 % (8-40); MCH 29.4 pg (25.7-33.7); MCHC 34.5 g/dl (32.0-36.0); MEAN CELL VOLUME 85.3 fl (80-96); MEAN PLT VOLUME 9.2 fl (7.5-11.1); MONO % 7.1 % (3.8-10.2); NEUT % 62.6 % (42.8-82.8); PLATELET COUNT 215 10^3/uL (134-434); RDW 13.9 % (11.6-15.6); WHITE BLOOD COUNT 5.3 K/mm3 (4.0-10.0)
[2020-12-12 06:11] LABS: CHLORIDE 100 mmol/L (98-107); SODIUM 132 mmol/L (136-145)
[2020-12-12 06:13] LABS: CALCIUM 8.3 mg/dL (8.5-10.1)
[2020-12-12 06:14] LABS: ALBUMIN 3.4 g/dl (3.4-5.0); ANION GAP 11 MMOL/L (8-16); BLOOD UREA NITROGEN 30.8 mg/dL (7-18); CO2 22 mmol/L (21-32); GLUCOSE,RANDOM 191 mg/dL (74-106)
[2020-12-12 06:17] LABS: CREATININE 1.6 mg/dL (0.55-1.3); SGOT/AST 34 U/L (15-37); SGPT/ALT 29 U/L (13-61)
[2020-12-12 06:18] LABS: BILIRUBIN,TOTAL 0.8 mg/dL (0.2-1); TOT PROT 7.5 g/dl (6.4-8.2)
[2020-12-12 06:19] LABS: ALK PHOS 87 U/L (45-117)
[2020-12-12 12:04] LABS: BLOOD UREA NITROGEN 29.5 mg/dL (7-18); CALCIUM 8.4 mg/dL (8.5-10.1)
[2020-12-12 12:07] LABS: CREATININE 1.4 mg/dL (0.55-1.3)
[2020-12-12] MEDS ORDERED: SODIUM CHLORIDE 1,000 ML IV SCH (12:15)
[2020-12-12 16:23] LABS: EPI CELLS 23 /uL (0-25.1); HYALINE CASTS 1 /uL (0-3.1); PH,URINE 5.5 (5.0-8.0); URINE APPEARANCE CLOUDY; URINE BACTERIA 636 /uL (0-1359); URINE BILIRUBIN NEGATIVE (NEGATIVE); URINE COLOR YELLOW; URINE GLUCOSE (UA) TRACE (NEGATIVE); URINE KETONE TRACE (NEGATIVE); URINE LEUK ESTERASE 2+ (NEGATIVE); URINE NITRITE NEGATIVE (NEGATIVE); URINE PROTEIN 2+ (NEGATIVE); URINE RBC 6 /uL (0-23.9); URINE WBC 77 /uL (0-25.8)
[2020-12-12] MEDS: HEPARIN NA (PORCINE) 5,000 UNITS/ML 1ML VIAL SQ SCH (20:30)
[2020-12-12] MEDS: INSULIN SLIDING SCALE (NOVOLOG) 1 VIAL SQ SCH (20:33)
[2020-12-12] MEDS: SODIUM CHLORIDE 0.45% 1,000 ML IV SCH (20:33)
[2020-12-12] MEDS ORDERED: HEPARIN NA (PORCINE) 5,000 UNITS/ML 1ML VIAL ONE (20:38)
[2020-12-13] MEDS: ATORVASTATIN CA 40 MG TABLET (FP) PO SCH ×2 (01:47→21:46)
[2020-12-13] MEDS: HEPARIN NA (PORCINE) 5,000 UNITS/ML 1ML VIAL SQ SCH ×3 (01:47→17:52)
[2020-12-13] MEDS: INSULIN SLIDING SCALE (NOVOLOG) 1 VIAL SQ SCH ×3 (06:22→17:41)
[2020-12-13] MEDS: SODIUM CHLORIDE 0.45% 1,000 ML IV SCH (09:21)
[2020-12-13 11:48] LABS: HEMATOCRIT 38.2 % (32.4-45.2); HEMOGLOBIN 13.1 GM/dL (10.7-15.3); MCH 29.1 pg (25.7-33.7); MCHC 34.2 g/dl (32.0-36.0); MEAN CELL VOLUME 85.1 fl (80-96); MEAN PLT VOLUME 8.5 fl (7.5-11.1); PLATELET COUNT 215 10^3/uL (134-434); RBC 4.49 M/mm3 (3.60-5.2); RDW 13.9 % (11.6-15.6); WHITE BLOOD COUNT 5.5 K/mm3 (4.0-10.0)
[2020-12-13 12:16] LABS: CALCIUM 8.3 mg/dL (8.5-10.1); MAGNESIUM 2.1 mg/dL (1.8-2.4)
[2020-12-13 12:17] LABS: BLOOD UREA NITROGEN 21.5 mg/dL (7-18)
[2020-12-13 12:20] LABS: CREATININE 1.1 mg/dL (0.55-1.3)
[2020-12-13 12:21] LABS: BILIRUBIN,TOTAL 0.8 mg/dL (0.2-1); TOT PROT 6.5 g/dl (6.4-8.2)
[2020-12-13] MEDS ORDERED: SODIUM CHLORIDE 0.45% 1,000 ML IV SCH (13:46)
[2020-12-13 14:07] LABS: SARS-CoV-2 NAA Detected (Not Detected)
[2020-12-13] MEDS ORDERED: CHOLECALCIFEROL (VIT D3) 1,000 UNIT (25 MCG) TABLET PO ONE (16:52)
[2020-12-13] MEDS: ZINC SULFATE 220 MG CAPSULE (FP) PO SCH (17:52)
[2020-12-13] MEDS ORDERED: PIPERACILLIN/TAZOB 2.25 GM 2.25 GM in DEXTROSE 5%-WATER - 50 ML IVPB SCH ×2 (18:15→18:30)
[2020-12-13] MEDS ORDERED: DEXTROSE 5%-WATER - 50 ML IVPB ONE ×2 (18:25→21:26)
[2020-12-13] MEDS ORDERED: PIPERACILLIN/TAZOBACTAM 2.25 GM VIAL IVPB ONE (18:25)
[2020-12-13] MEDS ORDERED: cefTRIAXone SODIUM 1 GM VIAL ONE (21:26)
[2020-12-13] MEDS: CEFTRIAXONE 1 GM in DEXTROSE 5%-WATER - 50 ML IVPB SCH (21:45)
[2020-12-13] MEDS: DEXAMETHASONE SOD PHOSPHATE 4 MG/1 ML VIAL IVPUSH SCH (21:46)
[2020-12-13] MEDS: ASCORBIC ACID 500 MG TABLET (FP) PO SCH (21:46)
[2020-12-14] MEDS: HEPARIN NA (PORCINE) 5,000 UNITS/ML 1ML VIAL SQ SCH ×3 (01:57→17:36)
[2020-12-14] MEDS: INSULIN SLIDING SCALE (NOVOLOG) 1 VIAL SQ SCH ×3 (06:06→16:34)
[2020-12-14] MEDS: ZINC SULFATE 220 MG CAPSULE (FP) PO SCH (09:19)
[2020-12-14] MEDS: ASCORBIC ACID 500 MG TABLET (FP) PO SCH ×2 (09:19→21:16)
[2020-12-14] MEDS: DEXAMETHASONE SOD PHOSPHATE 4 MG/1 ML VIAL IVPUSH SCH (09:19)
[2020-12-14] MEDS: CHOLECALCIFEROL (VIT D3) 1,000 UNIT (25 MCG) TABLET PO SCH (09:19)
[2020-12-14] MEDS: CEFTRIAXONE 1 GM in DEXTROSE 5%-WATER - 50 ML IVPB SCH (09:21)
[2020-12-14] MEDS ORDERED: DEXTROSE 5%-WATER - 50 ML IVPB ONE (09:21)
[2020-12-14] MEDS ORDERED: cefTRIAXone SODIUM 1 GM VIAL ONE (09:21)
[2020-12-14 10:03] LABS: BASO % 0.4 % (0-2.0); HEMATOCRIT 37.8 % (32.4-45.2); HEMOGLOBIN 12.9 GM/dL (10.7-15.3); LYMPH % 27.5 % (8-40); MCH 28.8 pg (25.7-33.7); MCHC 34.3 g/dl (32.0-36.0); MEAN CELL VOLUME 84.2 fl (80-96); MEAN PLT VOLUME 8.5 fl (7.5-11.1); MONO % 7.7 % (3.8-10.2); NEUT % 64.4 % (42.8-82.8); PLATELET COUNT 224 10^3/uL (134-434); RBC 4.49 M/mm3 (3.60-5.2); RDW 13.6 % (11.6-15.6); WHITE BLOOD COUNT 2.8 K/mm3 (4.0-10.0)
[2020-12-14 10:19] LABS: CALCIUM 8.3 mg/dL (8.5-10.1)
[2020-12-14 10:20] LABS: ALBUMIN 2.9 g/dl (3.4-5.0); BLOOD UREA NITROGEN 22.1 mg/dL (7-18)
[2020-12-14 10:23] LABS: CREATININE 1.2 mg/dL (0.55-1.3)
[2020-12-14 10:25] LABS: TOT PROT 6.6 g/dl (6.4-8.2)
[2020-12-14] MEDS ORDERED: REMDESIVIR 200 MG in SODIUM CHLORIDE 250 ML IVPB ONE (16:45)
[2020-12-14] MEDS: ATORVASTATIN CA 40 MG TABLET (FP) PO SCH (21:16)
[2020-12-15] MEDS: HEPARIN NA (PORCINE) 5,000 UNITS/ML 1ML VIAL SQ SCH ×2 (01:07→09:40)
[2020-12-15] MEDS: INSULIN SLIDING SCALE (NOVOLOG) 1 VIAL SQ SCH ×2 (06:29→11:22)
[2020-12-15] MEDS: CHOLECALCIFEROL (VIT D3) 1,000 UNIT (25 MCG) TABLET PO SCH (09:40)
[2020-12-15] MEDS: ZINC SULFATE 220 MG CAPSULE (FP) PO SCH (09:40)
[2020-12-15] MEDS: ASCORBIC ACID 500 MG TABLET (FP) PO SCH (09:40)
[2020-12-15] MEDS: DEXAMETHASONE SOD PHOSPHATE 4 MG/1 ML VIAL IVPUSH SCH (09:40)
[2020-12-15 11:07] VITALS: BP 142/72; PULSE 78; TEMP 98.3
[2020-12-15 13:40] VITALS: BMI 26.2
[2020-12-15] MEDS ORDERED: REMDESIVIR 100 MG in SODIUM CHLORIDE 250 ML IVPB SCH (17:00)
== END 2020-12-15 13:00 | disposition left against medical advice (07) | DRG 177 ==
LOC: JER 02:25 → JERBED 09:34 → J6S 23:12 → OBSVTOIN 12-15 09:08
PROVIDERS: ADMIT Student in an Organized Health Care Education/Training Program; ATTEND Internal Medicine
PROC: XW033E5 Introduction of Remdesivir Anti-infective into Peripheral Vein, Percutaneous Approach, New Technology Group 5 (ICD-10-PCS; principal; 2020-12-15)
DX: U07.1 COVID-19 (principal); G93.41 Metabolic encephalopathy; J12.82 Pneumonia due to coronavirus disease 2019; N17.9 Acute kidney failure, unspecified; E87.1 Hypo-osmolality and hyponatremia; N39.0 Urinary tract infection, site not specified; E11.9 Type 2 diabetes mellitus without complications; I10 Essential (primary) hypertension; E78.5 Hyperlipidemia, unspecified; R63.0 Anorexia; Z68.26 Body mass index [BMI] 26.0-26.9, adult; R09.02 Hypoxemia
CPT/HCPCS: 36415; 71045-TC-FY; 76775-TC; 76856-TC; 80048; 80053; 81003; 82043; 82436; 82550; 82570; 82962; 83735; 84133; 84300; 84443; 84484; 85025; 85027; 86850; 86900; 86901; 87086; 93005; 93010; 97116-GP; 97162-GP; 99285-25; C9399; C9803; G0378; J1644; U0003; U0005